=== PATIENT | female | born 1980 ===

== ENCOUNTER 2021-04-05 16:06 | Emergency (ER) | payer SELFPAY ==
[~2021-04-05] VITALS: Ht 172.7 cm; Wt 75.4 kg
--- NOTE | 2021-04-05 16:12 | NUR ---
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
[2021-04-05 16:20] VITALS: BP 129/48
[2021-04-05] MEDS ORDERED: CEFTRIAXONE 1,000 MG IM ONE (17:30)
--- NOTE | 2021-04-05 20:01 | NUR ---
PT BACK TO ROOM
[2021-04-05] MEDS ORDERED: CEFTRIAXONE 1,000 MG ONE (20:32)
[2021-04-05 20:59] LABS: CLUE CELLS NONE SEEN (NONE SEEN); WET PREP WBCS MODERATE (FEW)
--- NOTE | 2021-04-05 21:29 | NUR ---
REPORT FROM FIGUEROA MURPHY
== END 2021-04-05 22:07 | disposition home or self-care (01) ==
LOC: ED 16:15
DX: N76.0 Acute vaginitis (principal)
CPT/HCPCS: 87210; 87491; 87591; 87808; 99283